=== PATIENT | female | born 1965 | race Caucasian/White ===

== ENCOUNTER → 2021-12-21 | Outpatient (CLI) | payer OTHER ==
--- NOTE | 2021-12-21 14:21 | XR ---
EXAMINATION TYPE: XR knee complete RT DATE OF EXAM: 12/21/2021 COMPARISON: NONE HISTORY: Pain TECHNIQUE: Three views are submitted. FINDINGS: There is displaced fracture involving the lateral margin of talus subluxation. 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 IMPRESSION: 1. Mildly displaced fracture superior margin of the patella with suprapatellar bursal fluid collectio n.
== END | disposition home or self-care (01) ==
LOC: RADXRMAIN 13:52
PROVIDERS: ATTEND Emergency Medicine
DX: S82.001A Unspecified fracture of right patella, initial encounter for closed fracture (principal)

== ENCOUNTER → 2022-01-08 | Outpatient (CLI) | payer OTHER ==
--- NOTE | 2022-01-08 09:50 | XR ---
EXAMINATION TYPE: XR elbow complete RT DATE OF EXAM: 01/08/2022 COMPARISON: NONE HISTORY: Pain FINDINGS: Three views of the elbow demonstrate no pathologic joint effusion. The osseous structures are intact . There is no acute fracture or dislocation. Spurs are seen involving the head of the radius. IMPRESSION: 1. No acute fracture or dislocation. If symptoms persist follow-up study in 7 to 10 days could be ob tained. 2. Hypertrophic spurring involving the head of the radius.
== END | disposition home or self-care (01) ==
LOC: RADXRMAIN 09:25
PROVIDERS: ATTEND Emergency Medicine
DX: M25.721 Osteophyte, right elbow (principal)